=== PATIENT | male | born 1955 | race African-American/Black ===

== ENCOUNTER 2017-03-16 10:09 | Emergency (ER) | payer OTHER ==
[~2017-03-16] VITALS: Ht 175.3 cm; Wt 118.0 kg
[2017-03-16 10:09] VITALS: BP 174/97; PULSE 81; RESP 18; TEMP 98.6; O2SAT 100
[2017-03-16] MEDS ORDERED: ALLO100T PO (10:32)
[2017-03-16] MEDS ORDERED: METF500T PO (10:32)
[2017-03-16] MEDS ORDERED: POTA-163 PO (10:32)
[2017-03-16] MEDS ORDERED: ASPI81TA23 PO (10:32)
--- NOTE | 2017-03-16 11:09 | PD ---
HPI Chief Complaint: Musculoskeletal Complaint Time Seen by Provider: 10:57 Travel History International Travel<30 days: No Contact w/Intl Traveler<30days: No Traveled to known affect area: No History of Present Illness HPI 61-year-old male with PMH of DM, HTN, gout presents to the ED for evaluation of 07/18 knee pain. Throbbing, no alleviating or exacerbating factors reported. Patient states that he was walking and noticed that his knee was painful, looked down and saw that it was very swollen. He denies any known injury, giving way, numbness, tingling, weakness of the extremity. Denies recent overuse. States that he has been on his knees praying for long periods of time lately. States he has never had a gout attack in the knee, always in the feet. Endorses feeling feverish this morning but did not measure a temperature at home. Endorses a little nausea which he thinks is secondary to the pain. He denies chest pain, palpitations, shortness of breath, abdominal pain. He also complains of left-sided shoulder pain. He states that he saw his doctor [facility] who suspects rotator cuff injury. PFSH Past Medical History Hx Anticoagulant Therapy: Yes (asa) Cardiac Catheterization: Yes Diabetes: Yes Patient Takes Glucophage: Yes Gout: Yes Hypertension: Yes Social History Alcohol Use: No Tobacco Use: No Substance Use: No Allergies-Medications (Allergen,Severity, Reaction): Coded Allergies: hydroxyzine (Verified Adverse Reaction, Unknown, htn, 03/16/17) Reported Meds & Prescriptions Reported Meds & Active Scripts Active Walker with Front Wheels (Device) 1 Mis Mis Ea .XX DIRECTED Tramadol (Tramadol HCl) 50 Mg Tab 50 Mg PO Q6H PRN Ibuprofen 600 Mg Tab 600 Mg PO Q8HR 7 Days Reported Aspirin EC (Aspirin) 81 Mg Tabdr 81 Mg PO DAILY Allopurinol 100 Mg Tab 100 Mg PO DAILY Metformin (Metformin HCl) 500 Mg Tab 500 Mg PO BIDPC Potassium Chloride ER (Potassium Chloride) 20 Meq Tab 20 Meq PO BID Review of Systems Except as stated in HPI: all other systems reviewed are Neg Physical Exam Narrative GENERAL: Well-nourished, well-developed obese white male in no acute distress. SKIN: Focused skin assessment warm/dry. HEAD: Normocephalic. EYES: No scleral icterus. No injection or drainage. NECK: Supple, trachea midline. No JVD or lymphadenopathy. CARDIOVASCULAR: Regular rate and rhythm without murmurs, gallops, or rubs. RESPIRATORY: Breath sounds equal bilaterally. No accessory muscle use. GASTROINTESTINAL: Abdomen soft, non-tender, nondistended. MUSCULOSKELETAL: No cyanosis, or edema. FOCUSED LEFT LOWER EXTREMITY EXAM: 2+ DP pulse. Patient is able to flex and extend the ankle and wiggle the toes. Homans sign negative. Edema of the anterior knee noted. Patient is able to flex the knee to 90, extends to approximately 15. ROM is painful. Tender to palpation of the joint lines of the knee. No patellar balloting. No popliteal tenderness. Neurovascularly intact distally. BACK: Nontender without obvious deformity. No CVA tenderness. Data Data Last Documented VS Vital Signs Date Time Temp Pulse Resp B/P (MAP) Pulse Ox O2 Delivery O2 Flow Rate FiO2 03/16/17 10:09 98.6 81 18 174/97 (122) 100 Room Air Orders Orders Knee, Complete (4vws) (03/16/17 11:05) Ice/Cold Pack (03/16/17 11:05) Complete Blood Count With Diff (03/16/17 11:07) Iv Access Insert/Monitor (03/16/17 11:07) Morphine Inj (Morphine Inj) (03/16/17 11:15) Ondansetron Inj (Zofran Inj) (03/16/17 11:15) Comprehensive Metabolic Panel (03/16/17 11:07) Ed Poc Ultrasound (03/16/17 ) Ketorolac Inj (Toradol Inj) (03/16/17 13:00) Corey Bandage (03/16/17 12:58) Ed Discharge Order (03/16/17 12:58) Labs Laboratory Tests Test 03/16/17 11:45 White Blood Count 12.6 TH/MM3 Red Blood Count 5.17 MIL/MM3 Hemoglobin 13.0 GM/DL Hematocrit 39.1 % Mean Corpuscular Volume 75.6 FL Mean Corpuscular Hemoglobin 25.1 PG Mean Corpuscular Hemoglobin Concent 33.2 % Red Cell Distribution Width 15.8 % Platelet Count 247 TH/MM3 Mean Platelet Volume 8.8 FL Neutrophils (%) (Auto) 76.7 % Lymphocytes (%) (Auto) 14.0 % Monocytes (%) (Auto) 8.4 % Eosinophils (%) (Auto) 0.3 % Basophils (%) (Auto) 0.6 % Neutrophils # (Auto) 9.7 TH/MM3 Lymphocytes # (Auto) 1.8 TH/MM3 Monocytes # (Auto) 1.1 TH/MM3 Eosinophils # (Auto) 0.0 TH/MM3 Basophils # (Auto) 0.1 TH/MM3 CBC Comment DIFF FINAL Differential Comment Blood Urea Nitrogen 16 MG/DL Creatinine 1.51 MG/DL Random Glucose 121 MG/DL Total Protein 8.5 GM/DL Albumin 3.8 GM/DL Calcium Level 8.8 MG/DL Alkaline Phosphatase 104 U/L Aspartate Amino Transf (AST/SGOT) 22 U/L Alanine Aminotransferase (ALT/SGPT) 13 U/L Total Bilirubin 0.6 MG/DL Sodium Level 136 MEQ/L Potassium Level 3.5 MEQ/L Chloride Level 97 MEQ/L Carbon Dioxide Level 31.9 MEQ/L Anion Gap 7 MEQ/L Estimat Glomerular Filtration Rate 48 ML/MIN MDM Medical Decision Making Medical Screen Exam Complete: Yes Emergency Medical Condition: Yes Differential Diagnosis effusion versus OA versus gout versus bursitis versus septic arthritis other Narrative Course 61-year-old male with PMH of DM, HTN, gout presents to the ED for evaluation of 6/10 knee pain. States that he has been on his knees praying for long periods of time lately. States he has never had a gout attack in the knee, always in the feet. Patient is afebrile on presentation. Physical exam reveals edema and tenderness to palpation on the anterior aspect of the knee. Patient is unable to extend to 0. Homans sign negative. No popliteal tenderness. IV was established. Patient was administered 4 mg Zofran 4 mg morphine IV. X-ray reveals prepatellar swelling. CBC with mild elevation of the white count, likely secondary to stress/pain. This is bursitis. Patient was administered 30 mg Toradol IV. He is prescribed a short course of anti-inflammatories and tramadol. Patient instructed to discontinue ASA while taking ibuprofen and reinitiate the medication after the course of anti-inflammatories. He is instructed to compress, ice, rest the extremity, take the medications as prescribed, follow up with the orthopedist. I detailed the symptoms of septic bursitis and reasons to return to the ED. The patient requested a prescription for a walker and this was granted. The patient and his indicated understanding of the discharge instructions and is agreeable to the care plan. The patient is stable and discharged home. Diagnosis Primary Impression: Prepatellar bursitis, left knee Referrals: Juan José Ashby MD Orthopedist Patient Instructions: General Instructions, Knee Bursitis (ED) Additional Instructions: Rest, ice, compress, elevate the extremity. Apply ice no longer than 10-15 minutes per hour a few times a day. Take 800 mg ibuprofen 3 times a day as they are prescribed. Take tramadol every 6 hours as needed for pain greater than 6. Stop taking aspirin while you are taking ibuprofen, resume once the course of ibuprofen is completed. Return to normal, gentle activity as tolerated. No running, jumping, kneeling activities for the next few weeks. Follow up with orthopedist as discussed. Return to the ED for worsening symptoms or any urgent or emergent medical condition. Med/Other Pt SpecificInfo: Prescription(s) given Scripts Walker with Front Wheels (Walker with Front Wheels) 1 Mis Mis EA .XX DIRECTED, #1 0 Refills Prov: Valentín Mayberry MD 03/16/17 Tramadol (Tramadol) 50 Mg Tab 50 MG PO Q6H Y for PAIN, #12 TAB 0 Refills Prov: Valentín Mayberry MD 03/16/17 Ibuprofen (Ibuprofen) 600 Mg Tab 600 MG PO Q8HR for 7 Days, TAB 0 Refills Prov: Valentín Mayberry MD 03/16/17 Disposition: 01 DISCHARGE HOME Condition: Stable Khadijah Álvarez Mar 16, 2017 11:09
[2017-03-16] MEDS ORDERED: MORPHINE SULFATE 4 MG/ML INJ IV PUSH ONE (11:15)
[2017-03-16] MEDS ORDERED: ONDANSETRON HCL 4 MG/2 ML VIAL IVP ONE (11:15)
--- NOTE | 2017-03-16 11:45 | RADRPT ---
EXAM DATE/TIME: 03/16/2017 11:14 [facility] COMPARISON: No previous studies available for comparison. INDICATIONS : Awoke with severe pain and swelling in the left knee, denies trauma, pain is mostly anterior, cannot extend leg due to pain MEDICAL HISTORY : gout SURGICAL HISTORY : None. ENCOUNTER: Initial ACUITY: 1 day PAIN SCORE: 10/10 LOCATION: Left knee FINDINGS: There is a large suprapatellar knee joint effusion. Moderate osteoarthritis is noted involving the pa tellofemoral and femorotibial joints. There is spurring at the insertion of the quadriceps tendon on the patella. No acute fracture or dislocation is noted. CONCLUSION: 1. Large suprapatellar knee joint effusion. 2. Moderate osteoarthritis involving the patellofemoral and femorotibial joints. 3. Spurring at the insertion of the quadriceps tendon on the patella. 4. No acute fracture or dislocation. Chalo Hall MD on March 16, 2017 at 11:41 Board Certified Radiologist. This report was verified electronically.
[2017-03-16 11:58] LABS: AUTOMATED NEUTROPHIL # 9.7 TH/MM3 (1.8-7.7); BASOPHIL # 0.1 TH/MM3 (0-0.2); BASOPHIL % 0.6 % (0.0-2.0); EOSINOPHIL % 0.3 % (0.0-4.0); HEMATOCRIT 39.1 % (39.0-51.0); LYMPHOCYTE # 1.8 TH/MM3 (1.0-4.8); MEAN CELL VOLUME 75.6 FL (80.0-100.0); MEAN CORPUSCULAR HEMOGLOBIN 25.1 PG (27.0-34.0); MEAN CORPUSCULAR HGB CONC 33.2 % (32.0-36.0); MEAN PLATELET VOLUME 8.8 FL (7.0-11.0); MONO % 8.4 % (0.0-8.0); MONOCYTE # 1.1 TH/MM3 (0-0.9); NEUT % 76.7 % (16.0-70.0); PLATELET COUNT 247 TH/MM3 (150-450); RED BLOOD COUNT 5.17 MIL/MM3 (4.50-5.90); RED CELL DISTRIBUTION WIDTH 15.8 % (11.6-17.2); WHITE BLOOD COUNT 12.6 TH/MM3 (4.0-11.0)
[2017-03-16 12:17] LABS: ALKALINE PHOSPHATASE 104 U/L (45-117); TOTAL BILIRUBIN ADULT 0.6 MG/DL (0.2-1.0); TOTAL PROTEIN 8.5 GM/DL (6.4-8.2)
[2017-03-16 12:20] LABS: ALBUMIN 3.8 GM/DL (3.4-5.0); ALT (GPT) 13 U/L (12-78); AST (GOT) 22 U/L (15-37); BICARBONATE 31.9 MEQ/L (21.0-32.0); BLOOD UREA NITROGEN 16 MG/DL (7-18); CALCIUM 8.8 MG/DL (8.5-10.1); CHLORIDE 97 MEQ/L (98-107); CREATININE 1.51 MG/DL (0.60-1.30); GLOMERULAR FILTRATION RATE 48 ML/MIN (>89); GLUCOSE,RANDOM 121 MG/DL (74-106); SODIUM (NA) 136 MEQ/L (136-145)
[2017-03-16] MEDS ORDERED: TRAM50TA PO (12:57)
[2017-03-16] MEDS ORDERED: IBUP-232 PO (12:57)
[2017-03-16] MEDS ORDERED: KETOROLAC TROMETHAMINE 30 MG/ML (IVP) VIAL IV PUSH ONE (13:00)
[2017-03-16] MEDS ORDERED: WALKER WHEELS/F1 MIS (13:14)
[2017-03-16 13:39] VITALS: BP 157/84
== END 2017-03-16 13:41 | disposition home or self-care (01) ==
LOC: NEPC 10:09
DX: M70.42 Prepatellar bursitis, left knee (principal); E11.9 Type 2 diabetes mellitus without complications; M10.9 Gout, unspecified; I10 Essential (primary) hypertension; Z79.01 Long term (current) use of anticoagulants
CPT/HCPCS: 73564; 80053; 85025; 96374; 96375; 99284; J1885; J2270; J2405